=== PATIENT | male | born 1940 | race Caucasian/White ===

== ENCOUNTER 2020-06-16 11:40 | Emergency (ER) | payer MEDICARE, OTHER ==
[2020-06-16 12:21] LABS: Hemoglobin 13.3 g/dL (14.0-18.0); Red Blood Cell (RBC) Count 4.11 mill/uL (4.70-6.10); White Blood Cell (WBC) Count 5.8 thou/uL (4.8-10.8)
[2020-06-16 12:22] LABS: #Eosinphils 0.3 thou/uL (0.0-0.7); #Lymphocytes 1.8 thou/uL (1.20-3.40); #Monocytes 0.7 thou/uL (0.11-0.59); %Basophils 0.8 % (0.0-1.0); %Eosinophils 5.4 % (0.0-10.0); %Lymphocytes 30.5 % (21.0-51.0); %Monocytes 12.2 % (0.0-10.0); %Neutrophils 51.1 % (42.0-75.0); Mean Corpuscular HGB CONC 34.5 g/dL (32.0-36.0); Mean Corpuscular Hemoglobin 32.5 pg (27.0-31.0); Mean Corpuscular Volume 94.2 fL (78.0-98.0); Mean Platelet Volume 7.1 fL (7.4-10.4); Platelet Count 241 thou/uL (130-400); RBC Distribution Width 11.7 % (11.5-14.5)
--- NOTE | 2020-06-16 12:27 | RAD ---
XR Chest 1 View Portable History: Cough Comparison: Radiograph 2004 Findings: Lungs are clear. No pneumothorax or effusion. Cardiac silhouette and mediastinal contours a re within normal limits. No acute osseous abnormality. Impression: No acute intrathoracic abnormality.
[2020-06-16 12:43] LABS: ALT (SGPT) 27 U/L (8-55); AST (SGOT) 25 U/L (5-34); Albumin 3.7 g/dL (3.4-4.8); Alkaline Phosphatase 104 U/L (40-110); Anion Gap 11 mmol/L (10-20); BUN (Urea Nitrogen) 21 mg/dL (8.4-25.7); Bilirubin, Total 0.5 mg/dL (0.2-1.2); CK (CPK) 43 U/L (30-200); Calc. Creatinine Clearance 0 mL/min (70-130); Calcium 8.8 mg/dL (7.8-10.44); Carbon Dioxide 24 mmol/L (23-31); Chloride 108 mmol/L (98-107); Estimated GFR-MDRD 86; Globulin 2.8 g/dL (2.4-3.5); Glucose 174 mg/dL (83-110); Lipase 27 U/L (8-78); Potassium 4.4 mmol/L (3.5-5.1); Protein, Total 6.5 g/dL (5.8-8.1); Sodium 139 mmol/L (136-145)
[2020-06-17 10:40] LABS: SARS-CoV-2 MS2 Positive; SARS-CoV-2 N Gene Negative; SARS-CoV-2 S Gene Negative; SARS-CoV-2 by NAA Not Detected (NotDetected); SARS-CoV-2 orf1ab Negative
== END 2020-06-16 13:18 | disposition home or self-care (01) ==
LOC: ERS 11:40
DX: J02.9 Acute pharyngitis, unspecified (principal); Z20.828 Contact with and (suspected) exposure to other viral communicable diseases; E11.9 Type 2 diabetes mellitus without complications; I10 Essential (primary) hypertension; F17.210 Nicotine dependence, cigarettes, uncomplicated; Z79.84 Long term (current) use of oral hypoglycemic drugs
CPT/HCPCS: 71045; 80053; 82550; 83690; 83880; 84484; 85025; 85379; 87804 ×2; 93005; 99284; U0003; 36415; 87635

== ENCOUNTER 2021-02-13 09:59 | Emergency (ER) | payer MEDICARE ==
[2021-02-13] MEDS ORDERED: HYDROcodone/Acetaminophen 5/325 mg Tablet ONE (11:36)
== END 2021-02-13 11:48 | disposition home or self-care (01) ==
LOC: ERS 09:59
DX: L08.9 Local infection of the skin and subcutaneous tissue, unspecified (principal); L53.9 Erythematous condition, unspecified
CPT/HCPCS: 36416; 99283

== ENCOUNTER 2024-07-24 13:34 | Emergency (ER) | payer MEDICARE | END 2024-07-24 17:08 | disposition left against medical advice (07) | LOC: ERS 13:34 | DX: T18.128A Food in esophagus causing other injury, initial encounter (principal); W44.F3XA Food entering into or through a natural orifice, initial encounter ==